=== PATIENT | female | born 1980 | race Caucasian/White ===

== ENCOUNTER 2016-08-07 07:55 | Day surgery (SDC) | payer OTHER ==
[~2016-08-07] VITALS: Ht 167.6 cm; Wt 122.0 kg
[2016-08-07] VITALS (11 sets, daily range): BP systolic 103–141; BP diastolic 50–83; PULSE 58–100; RESP 10–17; O2SAT 94–98
[~2016-08-07 07:55] MED LIST: BUPR150T12 PO; CeFAZolin Inj 3 Gm/ D5W 50 mL Bag IV ONE; IBUP-1827 PO; METF500T4 PO; NARA1TAB2 PO; PIOG15TA21 PO; PROM25TA14 PO
[2016-08-07] MEDS ORDERED: MetoCLOpramide 5 mg/mL 2 mL Inj ONE (07:56)
[2016-08-07] MEDS ORDERED: Ondansetron 2 mg/mL 2 mL Inj ONE (07:56)
[2016-08-07] MEDS ORDERED: Lidocaine PF 1% 30 mL Inj ONE (07:56)
[2016-08-07] MEDS ORDERED: Propofol 10,000 mCg/mL 20 mL Inj ONE (07:56)
[2016-08-07] MEDS ORDERED: fentaNYL-PF 50 mCg/mL 2 mL Inj ONE (07:56)
[2016-08-07] MEDS ORDERED: Succinylcholine Chloride 20 mg/mL 5 mL Inj ONE (07:56)
[2016-08-07] MEDS: Lactated Ringer's 1,000 ML IV SCH ×2 (08:55→09:42)
[2016-08-07] MEDS ORDERED: Lactated Ringer's 500 ML IV PRN (09:19)
[2016-08-07] MEDS ORDERED: Lactated Ringer's 1,000 ML IV SCH (09:19)
--- NOTE | 2016-08-07 09:19 | PCM.HPANE ---
Patient Data Date of Service: Aug 07, 2016 Surgeon Admitting Provider: Attending Provider:Darell Sánchez MD Primary Care Physician:Janet Crowder PA-C Other Provider:Varinder Archer Anesthesia Reason for Visit Right Knee Meniscal Tear Ht/WT & BMI Height (Feet): 5 Height (Inches): 6 Weight (Kilograms): 122 Body Mass Index 43.00 Allergies Uncoded Allergies: PRESERVATIVES (Adverse Reaction, Severe, MIGRAINE, 08/06/16) Past Anesthesia History Anesthesia History: Denies:: Anesthesia Reactions, Malignant Hyperthermia Diabetes History Hx Diabetes?: Yes Type of Diabetes: Type II Glycemic Control: Oral Medication Current Bedside Blood Glucose: 141 MRSA MRSA: No Medications Hypertension Medication: No Home Meds Incl Beta Deshawn: No Reported Medications Naratriptan 1 Mg Tablet1 Mg PO ONCE may repeat in 4 hrs 08/05/16 Metformin 500 Mg [id number] Mg PO BID Ref 0 08/05/16 Ibuprofen 600 Mg [id number] Mg PO TID Ref 0 08/05/16 Bupropion ER 150 Mg Tablet.er150 Mg PO DAILY Ref 0 08/05/16 Discontinued Reported Medications Promethazine 25 Mg Skequx87 Mg PO TID PRN For Nausea Ref 0 08/05/16 Pioglitazone 15 Mg Moshqd57 Mg PO DAILY Ref 0 08/05/16 History History of ENT Problems?: No Hx of Heart Problems?: No Cardiovascular History: Denies:: Heart Murmur Hypertension Hx of Respiratory Problem?: No Respiratory History: Denies:: Use of C-PAP Machine Hx Neurologic Problems?: Yes Neurological History: Positive for:: Headaches Hx of GI Problems?: No Hx of Problems?: No Female Hx: Denies:: Currently (MIRENA IUD) Skin History: Denies:: History Skin Disorders? Pressure Ulcers Hx Musculoskeletal Problems?: Yes Musculoskeletal History: Positive for:: Musculoskeletal Trauma (RT KNEE MENISCAL TEAR=CURRENT PROBLEM) Hx of Psycho/Social Problems?: Yes Psycho Social History: Positive for:: Anxiety Hx Surgeries?: No Hx Any Other Health Problems?: Yes Other History: Denies:: Cancer Endocrine Disease Hospitalization Thyroid Disease History Blood Transfusions: Denies:: Blood Transfusions Hx Diabetes: YesBedside Blood Glucose: 141 Hx Alcohol Use: NoHx Substance Use: No Smoking Status: Former Smoker Have You Smoked inLast 12 mo: No Stop/Bang Treated for Sleep Apnea?: No Do You Have a CPAP Machine?: No S-Snoring: Do You Snore Loudly: No T-Tired: feel tired, fatigued: No O-Obsered: Observed not breath: No P-Blood Pressure: treated: No B- Body Mass Index > 35 kg/m2: Yes A- Age over 50: No N- Neck Large Circumference: Yes G- Gender Male: No ARMAND Total Score: 2 ARMAND Risk Assessment: High Risk, =/>3 Yes ARMAND Category 2: Yes Risk Assessment Category Category 1A: Patient has history of documented sleep apnea, and HAS NOT received any narcotic, sedative or anesthesia administration during this stay. Category 1B: Patient has history of documented sleep apnea, and HAS received any narcotic , sedative or anesthesia administration during this stay Category 2: Patient has SUSPECTED Obstructive Sleep Apnea, and HAS received any narcotic , sedative or anesthesia administration during this stay. Category 3: Patient has SUSPECTED Obstructive Sleep Apnea and HAS NOT received narcotic, sedative or anesthesia administration during this stay. Category 4: Outpatient in Procedural Areas with known sleep apnea or who screen positive for High Risk via the STOP/BANG questionnaire. Exam Exam General Appearance: Alert, Oriented X3, Cooperative HEENT/AIRWAY: MP 2, Neck Movement (Full, thick), Mouth Opening (Wide) Lungs: Clear to Auscultation, Normal Air Movement Heart: Regular Rate/Rhythm, Normal S2 Meds/Labs/Diagnostics Admission Meds Current Medications Lactated Ringer's (Lr) 1,000 ml @ 120 mls/hr Q8H20M IV Last administered on t 08:55; Start 08/07/16 at 05:00; Stop 08/07/16 at 13:19 Bedside Blood Glucose: 141 Plan Impression Patient chart reviewed, patient interviewed and anesthestic plan with risks, benefits, and alternatives discussed, and informed consent obtained. NPO Status: 0630 WATER ASA Physical Status: ASA3 Severe Disease Anesthetic Support Modalities: [place] Scope Anesthetic Plan: GA Bene/Risks/Altern/Consents: Yes HP Complete Prior to Induction: Yes Kulwant Francois MD Aug 07, 2016 09:19
[2016-08-07] MEDS ORDERED: MetoCLOpramide 5 mg/mL 2 mL Inj IVPUSH PRN (09:20)
[2016-08-07] MEDS ORDERED: Labetalol 5 mg/mL 4 mL Inj IV PRN (09:20)
[2016-08-07] MEDS ORDERED: hydrALAZINE 20 mg/mL Inj IVPUSH PRN (09:20)
[2016-08-07] MEDS ORDERED: EPHEDrine Sulfate 50 mg/mL Inj IVPUSH PRN (09:20)
[2016-08-07] MEDS ORDERED: fentaNYL-PF 50 mCg/mL 2 mL Inj IVPUSH PRN (09:20)
[2016-08-07] MEDS ORDERED: Phenylephrine 10,000 mCg/mL Inj IVPUSH PRN (09:20)
[2016-08-07] MEDS ORDERED: Dexamethasone 4 mg/mL Inj IVPUSH PRN (09:20)
[2016-08-07] MEDS ORDERED: Ondansetron 2 mg/mL 2 mL Inj IVPUSH PRN (09:20)
[2016-08-07] MEDS ORDERED: Atropine 0.4 mg/mL Inj IVPUSH PRN (09:20)
[2016-08-07] MEDS ORDERED: Ketorolac 15 mg/mL Inj IVPUSH ONE (09:30)
[2016-08-07] MEDS ORDERED: HYDROcodone-APAP 5-325 mg Tablet PO PRN (09:30)
[2016-08-07] MEDS ORDERED: Ropivacaine-PF 0.5% 30 mL Inj INFILTRATE ONE (10:05)
--- NOTE | 2016-08-07 10:52 | PCM.ORTHOP ---
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 The patient has failed conservative management. X-rays show the tibiofemoral joints to be preserved with mild DJD. MRI was obtained which reveals medial meniscus tear and loose body with grade 4 chondromalacia. The patient has had persistent symptoms and is now brought to the operating room for arthroscopy. The risks, benefits, and alternatives of surgery were discussed with the patient. The risks included but were not limited to infection, bleeding, damage to vessels and nerves, loss of motion, continued pain, re-tear of the meniscus, deep venous thrombosis, and complications due to anesthesia including nerve injury, myocardial infarction, stroke, , etc. The patient stated understanding of the nature of the surgical procedure and gave written and verbal consent to proceed. PROCEDURE: The patient was brought to the operating room and placed supine on the operating room table. After the administration of general anesthesia the patient was placed in the supine position. Examination of the knee revealed no evident instability with a trace effusion. All prominences were padded with appropriately and neurovascular structures protected. The right knee was confirmed to be the appropriate site following surgical time out. The right lower extremity was examined under anesthesia. Range of motion was 0-135 degrees. There was no varus or valgus or posterior instability. Grade 2+ Johnnie noted with firm endpoint. The right lower extremity was then prepped and draped in the usual fashion. Sterile prep and drape was then undertaken of the knee. The knee joint was injected with 20 ccs of 1% Lidocaine, along with 3 ccs of 1 % lidocaine in the medial and lateral portal sites respectively. A standard anterolateral parapatellar stab wound was created. The knee joint was entered with a blunt-tipped obturator, followed by the 30-degree video arthroscope. An anteromedial portal was established under arthroscopic control. A routine arthroscopic survey was performed. 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 The medial joint space was then entered. The articular surfaces showed grade 3/ 4 chondromalacia. A degenerative posterior root and horn medial meniscal tear was noted with a small flap. The shaver and the cutting instruments were inserted, and a debridement of the meniscus back to healthy tissue was then undertaken. The ACL and PCL were noted to be intact; however, the anterior cruciate ligament appeared to be somewhat lax with anterior impingement. The lateral joint space was then entered. 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 There was a degenerative fraying to the anterior aspect of the lateral meniscus. A combination of the shaver and cutting instruments were then inserted and a debridement of this tissue down to stable tissue was undertaken. A 2.5 cm x 1.5 cm loose body was noted, a small 2.5 cm incision was made, extending the medial portal and the loose body was removed. Incision was closed with 2-0 Vicryl and 3-0 nylon. The knee was irrigated with an additional 2 liters of lactated Ringer's solution. Excess fluid was drained. The portals were closed with 3-0 nylon as well as xeroform. The knee was injected with 20 mL of 0.5% ropivacaine. A dry sterile dressing was applied, followed by an MAINOR hose, soft roll, and CIRO bandage. The patient was awakened in the operating room and transported to the recovery room in satisfactory condition. The patient appeared to tolerate the procedure well. At the completion of surgery the patient had soft compartments, palpable pulses, and brisk capillary refill. There were no complications noted. [postop plan] Grafts, Implants: None, Implants-See Implant Record Complications There were no periprocedural complications identified. Condition Stable Anesthetic Administered: GA Catheters: None Output, Estimated Blood Loss: 10 Blood Admin during surgery: No Surgical Specimen Removed: Yes Specimen sent to Pathology: Yes copies to: Darell Sánchez MD, Christopher L MD Aug 07, 2016 10:52
[2016-08-07] MEDS: HYDROmorphone 1 mg/mL Inj IVPUSH PRN ×2 (11:06→11:32)
[2016-08-07] MEDS ORDERED: oxyCODONE-Acetamin 5-325 mg Tablet PO ONE (11:47)
--- NOTE | 2016-08-07 12:14 | PCM.ANEP1 ---
Post Anesthesia Phase 1 PACU Phase 1 Assessment Date of Service: Aug 07, 2016 Vital Signs Vital Signs Date Time Temp Pulse Resp B/P Pulse Ox O2 Delivery O2 Flow Rate FiO2 08/07/16 11:40 58 12 115/63 97 Room Air 08/07/16 11:30 67 11 106/66 98 Room Air 08/07/16 11:25 73 13 110/55 96 Room Air 08/07/16 11:15 77 17 114/65 97 Room Air 08/07/16 11:10 87 10 121/76 94 Room Air 08/07/16 11:05 36.8 95 15 135/81 95 Room Air 08/07/16 11:00 99 16 135/79 95 Room Air 08/07/16 10:55 97 13 136/76 96 Room Air 08/07/16 10:52 100 14 133/80 94 Room Air 08/07/16 10:45 37.0 91 14 141/83 98 Simple Mask 8 Anesthetic Administered: GA Level of Alertness: Awake, talking CAUSEY's with Equal Strength: Yes Pain: Yes Pain Scale Score: 5 Nausea or Vomiting: No Oxygen Delivery: Simple Mask Lungs: Normal Air Movement Kulwant Francois MD Aug 07, 2016 12:14
--- NOTE | 2016-08-07 12:35 | PCM.ANEP2 ---
Post Anesthesia Evaluation ASA/CMS Post Anesthesia Date of Service: Aug 07, 2016 VS in Patient's Normal Range?: Yes Resp Stable; Airway Patent?: Yes CV Function & Hydration Stable: Yes Mental Status Recovered?: Yes Pain control Satisfactory?: Yes N/V Control Satisfactory?: Yes Kulwant Francois MD Aug 07, 2016 12:35
--- NOTE | 2016-08-12 14:49 | PATH ---
SURGICAL PATHOLOGY Attending Physician:See Additional MD CASE STATUS: Signed Out PATIENT NAME: ERAN MEIER PID: [id number] : 1980 DATE COLLECTED:08/07/2016 20:27 SPECIMEN: Joint, Cartilage, Shaving CLINICAL HISTORY: RIGHT KNEE MENISCAL TEAR 1). RIGHT KNEE LOOSE BODY FINAL DIAGNOSIS: Right Knee Loose Body: Benign osteocartilaginous fragment, consistent with loose body. No evidence of malignancy. ICD10 M23.41 GROSS DESCRIPTION: The specimen is received in formalin, labeled with the patient's name, sublabeled as right knee loose body and consists of a varner-white solid hard well-circumscribed mass (2.5 x 2.0 x 0.8 cm). The mass cannot be sliced with a scalpel. The cut surface is bright white with a varner gritty center. Section code: (A) mass, serially sectioned, human resources hr representative. Note: The sections have been decalcified. 08/08/16 JM MICRO DESCRIPTION: Please see diagnosis. ICD-9 CODES: CPT CODES: 1: 63460 Electronically Signed Out Estrellita Donnelly MD [facility] [address], [place] [address] Technical component performed at [facility], [address] [place] [address] Ave[address], [place], [address]
== END 2016-08-07 23:59 | disposition home or self-care (01) ==
LOC: SAS 07:55
PROVIDERS: ATTEND Orthopaedic Surgery
PROC: 0SCC0ZZ Extirpation of Matter from Right Knee Joint, Open Approach (ICD-10-PCS; principal; 2016-08-07 09:45)
DX: M23.221 Derangement of posterior horn of medial meniscus due to old tear or injury, right knee (principal); M23.261 Derangement of other lateral meniscus due to old tear or injury, right knee; M23.41 Loose body in knee, right knee; M22.41 Chondromalacia patellae, right knee; E11.9 Type 2 diabetes mellitus without complications; F41.9 Anxiety disorder, unspecified; Z87.891 Personal history of nicotine dependence; Z79.84 Long term (current) use of oral hypoglycemic drugs
CPT/HCPCS: 27310; 29881; 88304; J0330; J0690; J1170; J1885; J2270; J2405; J2765; J2795; J7120